=== PATIENT | male | born 1935 | race Asian ===

== ENCOUNTER 2017-06-26 07:58 | Day surgery (SDC) | payer OTHER ==
[2017-06-26] VITALS (9 sets, daily range): BP systolic 128–152; BP diastolic 68–88; PULSE 56–62; RESP 15–18; Ht 177.8 cm
[~2017-06-26 07:58] MED LIST: CEFAZOLIN 1 GM INJ ONE
[2017-06-26] MEDS ORDERED: METF500T4 PO (08:21)
[2017-06-26] MEDS ORDERED: CILO50TA PO (08:21)
[2017-06-26] MEDS ORDERED: SITA100T8 PO (08:21)
[2017-06-26] MEDS ORDERED: LOSA25TA5 PO (08:22)
[2017-06-26] MEDS ORDERED: ATOR20TA38 PO (08:22)
[2017-06-26] MEDS ORDERED: ASPI-664 PO (08:22)
[2017-06-26] MEDS ORDERED: CEFAZOLIN 2 GM/50 ML (PMX) 50 ML IVPB SCH (09:00)
[2017-06-26] MEDS ORDERED: SOD CHLORIDE 0.9% 1,000 ML IV SCH (09:00)
[2017-06-26] MEDS ORDERED: BUPIVACAINE 0.25% (MPF) 30 ML INJ ONE (09:26)
[2017-06-26 09:46] LABS: BASOPHIL # 0.1 10^3/ul (0.0-0.1); BASOPHILS % 0.8 % (0.0-2.0); EOSINOPHILS # 0.3 10^3/ul (0.0-0.5); EOSINOPHILS % 4.9 % (0.0-7.0); HEMATOCRIT 37.3 % (42.0-52.0); HEMOGLOBIN 12.7 g/dl (14.0-18.0); LYMPHOCYTES # 1.3 10^3/ul (0.8-2.9); LYMPHOCYTES % 19.3 % (15.0-51.0); MEAN CORPUSCULAR HEMOGLOBIN 31.6 pg (29.0-33.0); MEAN CORPUSCULAR VOLUME 92.8 fl (82.0-101.0); MEAN PLATELET VOLUME 9.3 fl (7.4-10.4); MONOCYTE # 0.7 10^3/ul (0.3-0.9); MONOCYTES % 10.5 % (0.0-11.0); NEUTROPHIL # 4.2 10^3/ul (1.6-7.5); NEUTROPHILS % 64.2 % (39.0-77.0); PLATELET COUNT 204 10^3/UL (140-415); RED BLOOD COUNT 4.02 10^6/ul (4.70-6.10); RED CELL DISTRIBUTION WIDTH 12.4 % (11.5-14.5); WHITE BLOOD COUNT 6.6 10^3/ul (4.8-10.8)
[2017-06-26 10:10] LABS: CALCIUM 8.6 mg/dl (8.4-10.2); CREATININE 1.23 mg/dl (0.61-1.24); POTASSIUM 4.4 mmol/L (3.5-5.1)
[2017-06-26] MEDS ORDERED: BUPIVACAINE 0.5% (SDV) 30 ML INJ ONE (10:38)
[2017-06-26] MEDS ORDERED: LIDOCAINE 2% (MDV) 20 ML INJ ONE (10:38)
[2017-06-26] MEDS ORDERED: ONDANSETRON 4 MG INJ ONE (11:17)
--- NOTE | 2017-06-26 11:48 | OPR ---
Date/Time of Note Date/Time of Note DATE: 06/26/17 TIME: 11:43 Operative Report Procedure Date: Jun 26, 2017 Preoperative Diagnosis back mass Postoperative Diagnosis same Operation/Procedure Performed 1. excision of back mass 5 cm mass 5 cm incision 2. localized adjacent tissue transfer with the use of skin flaps 10 sq cm defect 3. therapeutic injection of subcutaneous local anesthesia Surgeon see signature line Oyster Grower none Anesthesia Type: general Estimated Blood Loss: 0 - 10 ml's Transfusion none Specimen back mass Grafts/Implants none Complications none Pt Condition Post Procedure: stable Indications This is an 89-year-old male with a back mass. He requests surgical excision. Risks alternatives benefits and percent were discussed the patient. Patient expressed understanding consents to the operation. Procedure Description Patient taken to the OR and prepped and draped in usual sterile fashion. Surgical timeout was performed. IV antibiotics were given. Elliptical incision is made over the left back mass after local anesthesia was infiltrated along the mass. Dissection cautery was carried onto the mass and circumferentially excised to the deep tissues. Due to large tissue defect localized adjacent tissue transfer with his skin flaps was performed. Multilayer closure with interrupted 2-0 Vicryl interrupted 3-0 Vicryl and skin pacheco. Additional local anesthesia was injected dry dressings were applied. Azael SCHWAB Jun 26, 2017 11:48
[2017-06-26] MEDS ORDERED: ALBUTEROL 0.083% (NEB) 2.5 MG/3 ML AMP HHN PRN (12:00)
[2017-06-26] MEDS ORDERED: MIDAZOLAM 1 MG/ML 2 ML INJ IV PRN (12:00)
[2017-06-26] MEDS ORDERED: LABETALOL HCL 20MG INJ IV PRN (12:00)
[2017-06-26] MEDS ORDERED: HYDROCODONE/APAP (5/325) TAB PO ONE (12:00)
[2017-06-26] MEDS ORDERED: MEPERIDINE 25 MG INJ IV PRN (12:00)
[2017-06-26] MEDS ORDERED: hydrALAzine 20 MG INJ IV PRN (12:00)
[2017-06-26] MEDS ORDERED: OXYCODONE/ACETAMINOPHEN (5/325) TAB PO PRN ×2 (12:00)
[2017-06-26] MEDS ORDERED: TRIMETHOBENZAMIDE 100 MG/ML VIAL IM PRN (12:00)
[2017-06-26] MEDS ORDERED: EPHEDrine SULFATE 50 MG/5 ML SYG IV PRN (12:00)
[2017-06-26] MEDS ORDERED: DIPHENHYDRAMINE 50 MG INJ IV PRN (12:00)
[2017-06-26] MEDS ORDERED: HYDROmorphONE (0.2 MG/ML) 10ML SYG IV PRN ×3 (12:00)
[2017-06-26] MEDS ORDERED: IPRATROPIUM (NEB) 0.5 MG/2.5 ML AMP HHN PRN (12:00)
[2017-06-26] MEDS ORDERED: ONDANSETRON 4 MG INJ IV PRN (12:00)
[2017-06-26] MEDS ORDERED: FENTAnyl 50 MCG/ML VIAL IV PRN ×3 (12:00)
[2017-06-26] MEDS ORDERED: METOCLOPRAMIDE 10 MG INJ ONE (12:23)
[2017-06-26] MEDS ORDERED: METOCLOPRAMIDE 10 MG INJ IV ONE (12:30)
== END 2017-06-26 13:17 | disposition home or self-care (01) ==
LOC: SDS 07:58
PROVIDERS: ATTEND Surgery
DX: L72.0 Epidermal cyst (principal); I10 Essential (primary) hypertension; E78.5 Hyperlipidemia, unspecified; I25.10 Atherosclerotic heart disease of native coronary artery without angina pectoris
CPT/HCPCS: 80048; 82962; 85025; 88307; J0690; J2405; J2765; J3010